=== PATIENT | female | born 1990 | race Caucasian/White ===

== ENCOUNTER 2017-06-06 02:42 | Emergency (ER) | payer OTHER ==
[2017-06-06] MEDS ORDERED: Ketorolac Tromethamine 30 MG/ML VIAL ONE (04:41)
--- NOTE | 2017-06-06 10:33 | RAD ---
3 VIEWS LEFT ANKLE: Date: 06/06/17 COMPARISON: None. HISTORY: Fall, trauma, pain. FINDINGS: There is prominent soft tissue swelling overlying the lateral malleolus. On the mortise view, there is a small osseous density adjacent to the cuboid suggesting a possible av ulsion fracture. The talar dome is unremarkable. IMPRESSION: Findings suggesting a possible 4.0 mm avulsion-type fracture at the level of the cuboid. This could b e better assessed with dedicated left foot radiographs. CODE T. POS: SHERLYN
== END 2017-06-06 05:13 | disposition home or self-care (01) ==
LOC: SCSER 02:42
DX: S96.912A Strain of unspecified muscle and tendon at ankle and foot level, left foot, initial encounter (principal); G47.30 Sleep apnea, unspecified; Z79.84 Long term (current) use of oral hypoglycemic drugs; Z79.899 Other long term (current) drug therapy; X50.1XXA Overexertion from prolonged static or awkward postures, initial encounter
CPT/HCPCS: 93005; 96361; 96374; J1885

== ENCOUNTER 2017-06-29 08:10 | Outpatient (CLI) | payer OTHER ==
--- NOTE | 2017-06-29 11:11 | MRI ---
MRI OF THE LEFT HINDFOOT WITHOUT CONTRAST: Date: 06/29/17 INDICATION: Left ankle pain after pain had an injury 3 weeks ago where she stepped off a curb and rolled her ankl e. COMPARISON: Radiographs of the left ankle dated 06/18/17. FINDINGS: There is complete disruption of the ATFL and calcaneofibular ligament with a Grade I sprain of the po sterior talofibular ligament. The syndesmotic ligaments are intact. There is Grade II sprain of the d eep deltoid, as well as the spring ligament. There is mild contusion involving the talar head. There is a small subcortical fracture involving the lateral margin of the cuboid. There is mild contusion i nvolving the base of the fifth metatarsal. The Achilles tendon, peroneal, medial flexor tendons, and extensor tendons are normal appearing. Lisf ranc ligament is intact. No osteochondral lesion is evident. The sinus tarsi has a normal signal inte nsity. Plantar fascia is normal appearing. IMPRESSION: 1. Grade III sprains of the ATFL and calcaneofibular ligament. 2. Grade II sprains of the medial deep deltoid and distal spring ligament. 3. Grade I sprain of the PTFL. 4. Subcortical fracture of the lateral cuboid with mild contusion to base of fifth metatarsal and me dial talar head/neck region. POS: SHERLYN
== END 2017-06-29 08:11 | disposition home or self-care (01) ==
LOC: SCSMRI 08:10
PROVIDERS: ATTEND Family Medicine
DX: S92.212A Displaced fracture of cuboid bone of left foot, initial encounter for closed fracture (principal); S93.432A Sprain of tibiofibular ligament of left ankle, initial encounter; S93.492A Sprain of other ligament of left ankle, initial encounter; M25.572 Pain in left ankle and joints of left foot; M79.672 Pain in left foot

== ENCOUNTER 2017-12-20 13:24 | Outpatient (CLI) | payer OTHER | END 2017-12-20 13:25 | disposition home or self-care (01) | LOC: CTENTCT 13:24 | PROVIDERS: ATTEND Otolaryngology Plastic Surgery within the Head & Neck | DX: J32.9 Chronic sinusitis, unspecified (principal); G47.33 Obstructive sleep apnea (adult) (pediatric) | CPT/HCPCS: 70486 ==

== ENCOUNTER 2017-12-29 10:16 | Day surgery (SDC) | payer OTHER ==
[2017-12-28 14:42] VITALS: BMI 48.0
[2017-12-29] MEDS ORDERED: Oxymetazoline HCl 0.05% ( 15 ML ) ONE ×2 (10:25→11:47)
[2017-12-29] MEDS ORDERED: Midazolam HCl 2 mg/2 ml Vial ONE (11:30)
[2017-12-29] MEDS ORDERED: Meperidine HCl/PF 25 MG/ML VIAL ONE (11:42)
[2017-12-29] MEDS ORDERED: Fentanyl 100 MCG/2 ML VIAL ONE ×3 (11:42→13:30)
[2017-12-29] MEDS ORDERED: Famotidine/PF 20 mg/2ml Vial ONE (11:42)
[2017-12-29] MEDS ORDERED: Lidocaine 1% w/Epinephrine 1:100K 30 ML VIAL ONE (11:46)
[2017-12-29] MEDS ORDERED: Bacitracin Zinc Ointment 30 gm TUBE ONE (11:47)
[2017-12-29] MEDS ORDERED: Ferric Subsulfate 8 ML BOT ONE (12:23)
[2017-12-29] MEDS ORDERED: Ketorolac Tromethamine 30 MG/ML VIAL ONE (14:01)
[2017-12-29] MEDS ORDERED: Morphine 2 MG/ML SYRINGE ONE (14:01)
[2017-12-29] MEDS ORDERED: Labetalol HCl 100 MG/20 ML VIAL ONE (14:14)
[2017-12-29] MEDS ORDERED: Dexamethasone 20 MG/5 ML VIAL ONE (16:34)
[2017-12-29] MEDS ORDERED: PROPOFOL 200 MG/20 ML VIAL ONE (16:34)
[2017-12-29] MEDS ORDERED: Ondansetron PF 4 MG/2 ML Vial ONE (16:34)
[2017-12-29] MEDS ORDERED: Lidocaine 1% PF 5 ML VIAL ONE (16:34)
[2017-12-29] MEDS ORDERED: Succinylcholine Chloride 20 MG/ML 10 ml SYRINGE FS ONE (16:34)
--- NOTE | 2017-12-30 08:46 | OP ---
DATE OF PROCEDURE: 12/30/2017 PREOPERATIVE DIAGNOSES: 1. Chronic rhinosinusitis. 2. Nasal septal deviation. 3. Bilateral inferior turbinate hypertrophy. 4. Nasal obstruction. 5. Left middle turbinate kimberly bullosa. 6. Chronic adenotonsillitis. 7. Adenotonsillar hypertrophy. POSTOPERATIVE DIAGNOSES: 1. Chronic rhinosinusitis. 2. Nasal septal deviation. 3. Bilateral inferior turbinate hypertrophy. 4. Nasal obstruction. 5. Left middle turbinate kimberly bullosa. 6. Chronic adenotonsillitis. 7. Adenotonsillar hypertrophy. PROCEDURES: 1. Bilateral endoscopic sinus surgery, total ethmoidectomies. 2. Bilateral endoscopic sinus surgery, maxillary antrostomies. 3. Bilateral endoscopic sinus surgery, frontal sinusotomy. 4. Nasal septoplasty. 5. Bilateral inferior turbinate submucosal resection. 6. Tonsillectomy and adenoidectomy. SURGEON: Dg Ortiz M.D. ESTIMATED BLOOD LOSS: 50 mL COMPLICATIONS: None. ANESTHESIA: GETA. PROCEDURE IN DETAIL: After consent was obtained, the patient was identified, brought to the operatin g room, and placed on the operating table in the supine position. General endotracheal anesthesia an d intravenous access was obtained and we proceeded with positioning the patient for oropharyngeal delfina jackelin. Oropharyngeal exposure was obtained with a Rosy-Pranav mouth gag after a head drape was placed and secured with a towel clip. The Rosy-Pranav mouth gag was then suspended from the Sahni tray and palatal elevation was achieved with a red rubber catheter. The right tonsil was addressed first. We used a curved Allis to grasp the tonsil and retract it medially as an anterior pillar incision was m matt. The retrotonsillar fascial plane was then established and blunt dissection was performed with t he suction cautery. Blood vessels were anticipated, identified, and cauterized as they were encounte red. Ultimately, dissection was carried to the posterior tonsillar pillar mucosa which was incised h emostatically, as well as the base of tongue connection. The tonsil was then passed off as a specime n and bleeding points within the tonsillar bed were cauterized under direct visualization. We subseq uently turned our attention to the contralateral side, where using a similar technique, a near identi tiffany procedure was performed. Again, the tonsil was grasped and retracted medially with a curved Cornel s. The retrotonsillar fascial plane was established and while the anterior pillar was retracted medi ally, the hemostatic blunt dissection of the tonsil with a suction cautery was performed with blood v essels anticipated, identified, and cauterized as they were encountered. Again, dissection continued to the base of tongue and posterior tonsillar pillar mucosa which was incised in a hemostatic fashio n. The tonsillar beds were then carefully inspected and bleeding points were identified and cauteriz ed with a suction cautery. After this portion of the procedure, hemostasis was completely obtained. Under direct mirror visualization, we visualized the adenoid pad. Under direct mirror visualization, we removed the bulk of the adenoid tissue with the adenoid curette. We then packed the nasopharynx for an appropriate period of time with Fabian-Synephrine saturated tonsillar sponges. After a period of observation, we removed the pack. Under indirect mirror visualization, we obtained hemostasis and v aporization of residual adenoid tissue with electrocautery. The patient's oral cavity was copiously irrigated with iced saline and subsequently suctioned. After completion of the procedure, the nasal cavity and oropharynx were irrigated and suctioned as were the gastric contents. The patient was the n awakened and transferred to the recovery room where the patient remained in stable condition prior to discharge to Day Stay. The patient was taken to the operating room and placed supine on the table. General endotracheal ane sthesia was obtained by the Anesthesia staff. Tube was secured in the left lower lip. Patient was th en placed in the beach chair position, and Afrin pledgets were placed in the nasal cavity. Injection s of 1% lidocaine with 1:100,000 epinephrine were made into the nasal septum as well as the inferior turbinates. Patient was then prepped and draped in standard surgical fashion for nasal surgery. Fol lowing this, the Afrin pledgets were removed. A Wing incision was made on the left nasal septum. Submucoperichondrial dissection was performed. The deviated portions of the septum included portion s of the cartilage and the bony septum. These isolated areas were removed using three cutting rongeu rs. There was noted to be a large dorsal and caudal strut, left intact for support of the nose. The mucoperichondrial flaps were then reapproximated using a 4-0 gut stitch. Any straight pieces of car tilage were crushed prior to this and placed between the mucoperichondrial flaps. Following this, th e inferior turbinates were then punctured with a submucosal coblation wand, and submucosal coblations were performed of multiple areas of the inferior portion of the anterior inferior turbinate. Please note the submucosal microdebrider was used to submucosally resect the anterior and inferior po rtions of the inferior turbinates bilaterally. Following this, the 0-degree endoscope was advanced i nto the middle meatus. The left middle turbinate was visualized. Kimberly bullosa was identified and a vertical incision was made using a sickle knife. Following this, the lateral portion of this left middle turbinate kimberly bullosa was resected using the straight Blakesley forceps and the 0-degree mi crodebrider. Following this, the uncinate process was visualized bilaterally and was anteriorly frac tured using the ball-ended probe. Following this, the uncinate process was removed bilaterally using the 0-degree microdebrider and upbiting Blakesley forceps. Following this, the natural maxillary si nus ostia was identified and was gently widened using the curved microdebrider and the straight Eder sley forceps bilaterally. Following this, the ethmoidal bulla was identified, was then punctured on its medial and inferior aspect using the straight microdebrider. Following this, the ethmoidal bulla was identified and was punctured on its medial and inferior aspect and was removed using the microde brider and upbiting Blakesley forceps. Following this, the grand lamella was identified and was punc tured into the posterior ethmoidal cells bilaterally. Working from posterior to anterior, the ethmoi asia cells were opened in a mucosal-sparing technique using the straight microdebrider, curved microde brider and Blakesley forceps. Following this, a 45-degree endoscope and the curved microdebrider wer e used to visualize the frontal recess and frontal sinus ostia bilaterally. The frontal sinus ostia was then widened bilaterally using the curved microdebrider. Following this, the nasal cavity was ir rigated. MeroPacks were placed within the middle meatus. Douglass splints were placed and secured.
== END 2017-12-29 15:45 | disposition home or self-care (01) ==
LOC: SDC 10:16
PROVIDERS: ATTEND Otolaryngology Plastic Surgery within the Head & Neck
PROC: 09TL0ZZ Resection of Nasal Turbinate, Open Approach (ICD-10-PCS; principal; 2017-12-29)
PROC: 099T8ZZ Drainage of Left Frontal Sinus, Via Natural or Artificial Opening Endoscopic (ICD-10-PCS; principal; 2017-12-29)
PROC: 09TL8ZZ Resection of Nasal Turbinate, Via Natural or Artificial Opening Endoscopic (ICD-10-PCS; principal; 2017-12-29)
PROC: 0CTQXZZ Resection of Adenoids, External Approach (ICD-10-PCS; principal; 2017-12-29)
PROC: 099Q8ZZ Drainage of Right Maxillary Sinus, Via Natural or Artificial Opening Endoscopic (ICD-10-PCS; principal; 2017-12-29)
PROC: 09SM0ZZ Reposition Nasal Septum, Open Approach (ICD-10-PCS; principal; 2017-12-29)
PROC: 099R8ZZ Drainage of Left Maxillary Sinus, Via Natural or Artificial Opening Endoscopic (ICD-10-PCS; principal; 2017-12-29)
PROC: 099S8ZZ Drainage of Right Frontal Sinus, Via Natural or Artificial Opening Endoscopic (ICD-10-PCS; principal; 2017-12-29)
PROC: 0CTPXZZ Resection of Tonsils, External Approach (ICD-10-PCS; principal; 2017-12-29)
PROC: 09TU8ZZ Resection of Right Ethmoid Sinus, Via Natural or Artificial Opening Endoscopic (ICD-10-PCS; principal; 2017-12-29)
PROC: 09TV8ZZ Resection of Left Ethmoid Sinus, Via Natural or Artificial Opening Endoscopic (ICD-10-PCS; principal; 2017-12-29)
DX: J32.9 Chronic sinusitis, unspecified (principal); J34.2 Deviated nasal septum; J34.3 Hypertrophy of nasal turbinates; G47.33 Obstructive sleep apnea (adult) (pediatric); J34.89 Other specified disorders of nose and nasal sinuses; J35.03 Chronic tonsillitis and adenoiditis; Z79.84 Long term (current) use of oral hypoglycemic drugs; Z79.899 Other long term (current) drug therapy
CPT/HCPCS: 85014; 88304; 96374; 96375; J0131; J1100; J1885; J2001; J2175; J2250; J2270; J2405; J2704; J3010; S0028